=== PATIENT | male | born 1955 | race Caucasian/White ===

== ENCOUNTER 2023-07-02 09:16 | Emergency (ER) | payer MEDICARE, OTHER ==
[~2023-07-02] VITALS: Ht 170.2 cm; Wt 74.8 kg
[2023-07-02 09:39] VITALS: BP 168/99; PULSE 75; RESP 17; TEMP 97.3; O2SAT 98
[2023-07-02] MEDS ORDERED: LISI10TA30 PO (12:35)
== END 2023-07-02 12:43 | disposition home or self-care (01) ==
LOC: MED 09:16
DX: H11.32 Conjunctival hemorrhage, left eye (principal); I10 Essential (primary) hypertension; Z76.0 Encounter for issue of repeat prescription; Z98.890 Other specified postprocedural states
CPT/HCPCS: 99281

== ENCOUNTER 2024-08-18 21:21 | Emergency (ER) | payer MEDICARE, OTHER ==
[~2024-08-18] VITALS: Ht 157.5 cm; Wt 61.2 kg
[~2024-08-18 21:21] MED LIST: LISI10TA30 PO
[2024-08-18 21:30] VITALS: BP 211/89; PULSE 74; RESP 16; TEMP 97.2; O2SAT 100
[2024-08-18] MEDS: CLONIDINE HYDROCHLORIDE 0.1 MG TAB PO ONE (22:10)
[2024-08-19] MEDS ORDERED: CLON0.1T16 PO (00:11)
[2024-08-19 00:26] VITALS: BP 156/74; PULSE 57; RESP 20; TEMP 98.2; O2SAT 98
== END 2024-08-19 00:25 | disposition home or self-care (01) ==
LOC: MED 21:21
DX: I10 Essential (primary) hypertension (principal); Z79.899 Other long term (current) drug therapy
CPT/HCPCS: 93005; 99283